=== PATIENT | female | born 1955 | race Caucasian/White ===

== ENCOUNTER 2018-12-04 12:47 | Emergency (ER) | payer BC ==
[~2018-12-04] VITALS: Ht 157.5 cm; Wt 59.1 kg
[2018-12-04 12:53] VITALS: Ht 157.5 cm; Wt 59.1 kg
[2018-12-04] MEDS ORDERED: CHOLESTEROL (12:55)
[2018-12-04] MEDS ORDERED: [UNRECOGNIZED DRUG - REMARK] (12:56)
[2018-12-04] MEDS ORDERED: GLUCOPHAGE500 MG PO (12:56)
[2018-12-04 13:39] LABS: BASOPHILS 0.3 % (0-2); EOSINOPHILS 1.4 % (0-7); HEMATOCRIT 44.6 % (36.0-48.0); IMMATURE GRANULOCYTES 0.3 % (0-5); LYMPHOCYTES 27.7 % (15-50); MCH 32.1 pg (26.0-34.0); MCHC 35.9 g/dL (31.0-37.0); MCV 89.6 fL (80.0-100.0); MEAN PLATELET VOLUME 9.6 fL (7.4-10.4); MONOCYTES 4.7 % (2-11); NEUTROPHILS 65.6 % (40-80); PLATELET COUNT 270 10x3/uL (130-400); RBC 4.98 10x6/uL (4.00-5.40); RDW 13.3 % (11.5-14.5); WBC 12.9 10x3/uL (4.8-10.8)
[2018-12-04 13:54] LABS: ALBUMIN 3.3 g/dL (3.4-5.0); ALKALINE PHOSPHATASE 104 U/L (46-116); ALT (SGPT) 18 U/L (10-68); BILIRUBIN - TOTAL 0.23 mg/dL (0.2-1.3); CALC OSMOLALITY 285 mosm/kg (275-300); CALCIUM 9.4 mg/dL (8.5-10.1); CARBON DIOXIDE 24.5 mmol/L (21.0-32.0); CHLORIDE - SERUM 101 mmol/L (98-107); GLUCOSE 252 mg/dL (74-106); POTASSIUM - SERUM 3.6 mmol/L (3.5-5.1); PROTEIN - SERUM 7.4 g/dL (6.4-8.2); SODIUM 140 mmol/L (136-145); UREA NITROGEN 8 mg/dL (7-18); eGFR NON AFRICAN AMERICAN 60 mL/min (90-120)
[2018-12-04 14:05] LABS: CKMB 0.4 U/L (0.0-3.6); TROPONIN-I < 0.017 ng/mL (0.000-0.060)
[2018-12-04] MEDS ORDERED: TYLENOL W/CODEI1 TAB PO (15:27)
[2018-12-04] MEDS ORDERED: VOLTAREN75 MG PO (15:27)
[2018-12-04 15:37] VITALS: BP 112/58
== END 2018-12-04 15:38 | disposition home or self-care (01) ==
LOC: D.ER 12:47
PROVIDERS: Family Medicine
DX: I95.9 Hypotension, unspecified (principal); S89.91XA Unspecified injury of right lower leg, initial encounter; W08.XXXA Fall from other furniture, initial encounter; Y93.89 Activity, other specified; Y92.019 Unspecified place in single-family (private) house as the place of occurrence of the external cause; F17.200 Nicotine dependence, unspecified, uncomplicated